=== PATIENT | female | born 1980 | race Caucasian/White ===

== ENCOUNTER 2023-02-03 06:39 | Day surgery (SDC) | payer MEDICAID ==
[2023-02-03] VITALS (7 sets, daily range): BP systolic 94–100; BP diastolic 51–63; PULSE 53–67; RESP 12–16; O2SAT 94–98
[~2023-02-03] VITALS: Ht 157.5 cm; Wt 63.5 kg
[~2023-02-03 06:39] MED LIST: DAPA1TAB4 PO; INSU1INJ19 SC; METF-929 PO; METO-289 PO; OMEP-448 PO; PREN-96 PO; SACU1TAB PO; SPIR25TA8 PO
[2023-02-03] MEDS ORDERED: IODIXANOL 320MG/ML 100ML BTL IV ONE ×2 (07:46→08:34)
[2023-02-03] MEDS ORDERED: LIDOCAINE 2%HCL (LOCAL ANESTH.) INJ 20ML MDV ONE (07:46)
[2023-02-03] MEDS ORDERED: VERAPAMIL 2.5MG/ML INJ 2ML VIAL IV ONE (08:00)
[2023-02-03] MEDS ORDERED: fentaNYL CITRATE 100 MCG/2 ML VL ONE (08:00)
[2023-02-03] MEDS ORDERED: ANGIOMAX 250 MG VIAL IV ONE (08:00)
[2023-02-03] MEDS ORDERED: HEPARIN SODIUM (PORCINE) 5000 UNITS/ML 1ML VIAL ONE (08:00)
[2023-02-03] MEDS ORDERED: MIDAZOLAM HCL 2MG/2ML 2ml VIAL (1mg/ml) ONE (08:01)
[2023-02-03] MEDS ORDERED: SODIUM CHL 0.9% 0 ML ONE (08:01)
== END 2023-02-03 11:05 | disposition home or self-care (01) ==
LOC: CATH 06:39
PROVIDERS: ATTEND Internal Medicine Cardiovascular Disease
DX: R94.39 Abnormal result of other cardiovascular function study (principal); R06.02 Shortness of breath; I42.8 Other cardiomyopathies; E11.9 Type 2 diabetes mellitus without complications; I50.20 Unspecified systolic (congestive) heart failure; Z79.899 Other long term (current) drug therapy; Z79.82 Long term (current) use of aspirin
CPT/HCPCS: 82962; 93458; C1725; C1894; J1644; J2250; J3010; Q9967; 99152